=== PATIENT | male | born 1980 | race Caucasian/White ===

== ENCOUNTER 2023-12-08 08:10 | Outpatient (CLI) | payer BC, SELFPAY | END 2023-12-08 08:11 | disposition home or self-care (01) | LOC: NFLDREF 12-12 09:25 | PROVIDERS: PCP Family Medicine; Referring Provider Family Medicine; Visit Provider Family Medicine | DX: I10 Essential (primary) hypertension (principal) | CPT/HCPCS: 80048 ==